=== PATIENT | male | born 1935 | race Caucasian/White ===

== ENCOUNTER 2021-12-18 14:55 | Outpatient (REF) | payer MEDICARE, SELFPAY ==
--- NOTE | ~2021-12-18 | MR_ITS ---
EXAMINATION: MR CERVICAL SPINE WITHOUT CONTRAST CLINICAL INFORMATION: Cervical cord compression C3-C4. COMPARISON: Brain MRI 11/05/2021. TECHNIQUE: MRI of the cervical spine was obtained using routine sequences without contrast. FINDINGS: There is 4 mm retrolisthesis of C3 on C4. Alignment is otherwise normal. Vertebral heights are preserved. No acute bone marrow signal changes. There are mixed type II and type III degenerative endplate changes at C3-C4. There is loss of intervertebral disc height and T2 signal intensity at multiple levels related to disc degeneration. Limited visualization of the posterior fossa reveals no abnormal finding. Occipital condyles and lateral C1 masses are intact. 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 Slight anterior subluxation of C1 on C2 with the AP diameter of the canal reduced to approximately 0.7 cm. No overt compression of the cervical spinal cord and no abnormal intramedullary signal changes at this location. C1-C2 articular facets are grossly unremarkable. At C2-C3 there is a broad central protrusion causing indentation of the thecal sac and abutment on the ventral surface of the cervical cord. No canal stenosis. No neuroforaminal encroachment. At C3-C4 there is a pseudodisc bulge causing flattening of the ventral thecal sac and buckling of ligamenta flava causing severe canal stenosis and compression of the cervical spinal cord. There is a short segment of chronic myelomalacia at this level. Uncovertebral joint spurring and facet degenerative change causes severe bilateral neuroforaminal encroachment. At C4-C5 there is a slightly bulging disc. No canal stenosis. Uncovertebral joint spurring and facet degenerative change causes moderate right and mild left neuroforaminal encroachment. At C5-C6 there is an asymmetrically bulging disc to the left. Moderate canal stenosis. Uncovertebral joint spurring and facet degenerative change causes severe left and moderate right neuroforaminal encroachment. At C6-C7 there is a bulging disc and buckling of the ligamenta flava. Moderate canal stenosis. Uncovertebral joint spurring and facet degenerative change causes severe right and moderate left neuroforaminal encroachment. At C7-T1 there is a slightly bulging disc. Bilateral facet degenerative change. No canal stenosis. Moderate left neuroforaminal encroachment. Visualized soft tissues of the neck are normal. Vascular flow voids are maintained. MR/MR cervical spine wo con IMPRESSION: There is advanced multilevel degenerative spondylosis of the cervical spine with 4 mm retrolisthesis of C3 on C4 and slight anterolisthesis of C1 on C2. There is severe canal stenosis with compression of the cervical spinal cord at the level of C3-C4 with a short segment of chronic myelomalacia at this level. There is also moderate canal stenosis at levels of C5-C6 and C6-C7. Mild canal stenosis at C1. There are varying degrees of neuroforaminal encroachment related to uncovertebral joint spurring and facet degenerative change as described above.
== END 2021-12-18 14:56 | disposition home or self-care (01) ==
LOC: HO.MRI 14:55
PROVIDERS: Visit Provider Psychiatry & Neurology Neurology
DX: G95.9 Disease of spinal cord, unspecified (principal)
CPT/HCPCS: 72141